=== PATIENT | male | born 1990 | race Caucasian/White ===

== ENCOUNTER 2020-12-19 16:38 | Emergency (ER) | payer OTHER ==
[~2020-12-19 16:38] MED LIST: PERCOCET 5-3251 EACH PO
== END 2020-12-19 17:22 | disposition home or self-care (01) ==
LOC: FER 16:38
DX: S93.602A Unspecified sprain of left foot, initial encounter (principal); X58.XXXA Exposure to other specified factors, initial encounter; Y92.009 Unspecified place in unspecified non-institutional (private) residence as the place of occurrence of the external cause
CPT/HCPCS: 99283